=== PATIENT | female | born 1955 | race Caucasian/White ===

== ENCOUNTER → 2018-01-13 | Outpatient (CLI) | payer BC, OTHER ==
[2018-01-13 11:23] LABS: HEMOGLOBIN 15.3 g/dl (12.0-15.5); MEAN CORPUSCULAR HEMOGLOBIN 29.5 pg (27.0-33.0); MEAN CORPUSCULAR HGB CONC 33.3 g/dl (32.0-36.5); MEAN CORPUSCULAR VOLUME 88.8 fl (80.0-96.0); PLATELET COUNT, AUTOMATED 281 10^3/uL (150-450); RED BLOOD COUNT 5.18 10^6/uL (4.00-5.40); WHITE BLOOD COUNT 7.3 10^3/uL (4.0-10.0)
[2018-01-13 11:34] LABS: APPEARANCE, URINE CLEAR (CLEAR); BACTERIA, URINE AUTO NEGATIVE (NEGATIVE); BILIRUBIN, URINE AUTO NEGATIVE (NEGATIVE); BLOOD, URINE BLOOD NEGATIVE (NEGATIVE); COLOR, URINE STRAW (YELLOW); GLUCOSE, URINE (UA) AUTO NEGATIVE (NEGATIVE); INR 1.33; KETONE, URINE AUTO NEGATIVE (NEGATIVE); LEUKOCYTE ESTERASE, URINE AUTO NEGATIVE (NEGATIVE); NITRITE, URINE AUTO NEGATIVE (NEGATIVE); PROTEIN, URINE AUTO NEGATIVE (NEGATIVE); PROTHROMBIN TIME 16.8 SECONDS (12.4-14.5); RBC, URINE AUTO 0 /HPF (0-3); SPECIFIC GRAVITY URINE AUTO 1.008 (1.002-1.035); SQUAMOUS EPITHELIAL CELL UR AU 0 /HPF (0-6); UROBILINOGEN, URINE AUTO 0.2 mg/dL (0.0-2.0); WBC, URINE AUTO 0 /HPF (0-3)
[2018-01-13 12:13] LABS: ERYTHROCYTE SEDIMENTATION RATE 9 mm/hr (0-30)
[2018-01-13 12:31] LABS: ALBUMIN 3.7 GM/DL (3.2-5.2); ALKALINE PHOSPHATASE 67 U/L (45-117); ALT/SGPT 21 U/L (12-78); ANION GAP 5 MEQ/L (8-16); AST/SGOT 19 U/L (7-37); BILIRUBIN,TOTAL 0.8 MG/DL (0.2-1.0); BLOOD UREA NITROGEN 16 MG/DL (7-18); CARBON DIOXIDE LEVEL 31 MEQ/L (21-32); CHLORIDE LEVEL 105 MEQ/L (98-107); CREATININE FOR GFR 0.79 MG/DL (0.55-1.30); GLOMERULAR FILTRATION RATE > 60.0 (>45); GLUCOSE, FASTING 84 MG/DL (70-100); POTASSIUM SERUM 3.5 MEQ/L (3.5-5.1); SODIUM LEVEL 141 MEQ/L (136-145); TOTAL PROTEIN 7.4 GM/DL (6.4-8.2)
== END ==
LOC: M ADMPAT 10:14
DX: M17.11 Unilateral primary osteoarthritis, right knee (principal)
CPT/HCPCS: 71046

== ENCOUNTER 2018-01-28 10:49 | Inpatient (IN) | payer BC, OTHER ==
[2018-01-28] MEDS ORDERED: ACETAMINOPHEN 500 MG TAB PO (11:15)
[2018-01-28] MEDS: LR 1,000 ML IV ×3 (11:33→18:16)
[2018-01-28] MEDS: ACETAMINOPHEN 500 MG TAB PO (11:33)
[2018-01-28] MEDS ORDERED: fentaNYL 100 MCG/2 ML INJECTION (J3010) As Ordered ×2 (12:16→13:28)
[2018-01-28] MEDS ORDERED: MIDAZOLAM INJ 2 MG/2 ML VIAL (J2250) As Ordered ×2 (12:16→13:29)
[2018-01-28] MEDS: fentaNYL 100 MCG/2 ML INJECTION (J3010) IV ×6 (12:43→16:09)
[2018-01-28] MEDS: MIDAZOLAM INJ 2 MG/2 ML VIAL (J2250) IV (12:44)
[2018-01-28] MEDS: ceFAZolin SOD 1 GM in D5W MINI-BAG PLUS 50 ML IV ×2 (13:27→21:07)
[2018-01-28] MEDS ORDERED: EPINEPHrine INJ 1 MG/ML 1ML AMP (13:45)
[2018-01-28] MEDS ORDERED: ROPIvacaine 0.5% 30 ML INJECTION (J2795 PER 1MG) (13:45)
[2018-01-28] MEDS ORDERED: dexameTHASONE 10 MG/1 ML VIAL PRES.FREE (J1100) (13:45)
[2018-01-28] MEDS ORDERED: PROPOFOL 500 MG/50 ML VIAL As Ordered (14:02)
[2018-01-28] MEDS: ceFAZolin 1GM INJ (J0690 PER 500MG) As Ordered (14:24)
[2018-01-28] MEDS: TRANEXAMIC ACID 100 MG/ML 10ML VIAL As Ordered (14:24)
[2018-01-28] MEDS: EPINEPHrine INJ 1 MG/ML 1ML AMP As Ordered (14:25)
[2018-01-28] MEDS ORDERED: PHENYLephrine HCL 500 MCG/5 ML (100MCG/ML) SYRINGE (J2370) As Ordered (14:33)
[2018-01-28] MEDS ORDERED: GLYCOPYRROLATE INJ 0.2 MG/ML 2 ML VIAL As Ordered (14:35)
[2018-01-28] MEDS: BUPIVACAINE HCL 0.25% 10 ML VIAL As Ordered (14:52)
[2018-01-28] MEDS: BUPIVACAINE LIPOSOME/PF 1.3% 20 ML VIAL (13.3MG/ML)(EXPAREL) As Ordered (14:52)
[2018-01-28] MEDS ORDERED: MORPHINE 1MG/ML IN 0.9% NACL 100ML IV BAG As Ordered (15:05)
[2018-01-28] MEDS: ONDANSETRON 4MG/2ML VIAL (J2405) IV (15:50)
[2018-01-28] MEDS ORDERED: diphenhydrAMINE INJ 50MG/ML VIAL (J1200) IV (16:00)
[2018-01-28] MEDS ORDERED: NALOXONE INJ 0.4 MG/1 ML VIAL (J2310) IV (16:00)
[2018-01-28] MEDS ORDERED: MORPHINE 1MG/ML IN 0.9% NACL 100ML IV BAG IV (16:00)
[2018-01-28] MEDS ORDERED: FLEET ENEMA PR (16:00)
[2018-01-28] MEDS ORDERED: EPIDURAL/PCA KEYS XX (16:00)
[2018-01-28] MEDS ORDERED: MORPHINE 10 MG/ML 1ML VIAL (J2270) IV (16:00)
[2018-01-28] MEDS ORDERED: NALBUPHINE HCL 10 MG/ML AMP (J2300) IV (16:00)
[2018-01-28] MEDS ORDERED: METOCLOPRAMIDE INJ 10MG/2ML VIAL (J2765) IV (16:00)
[2018-01-28] MEDS ORDERED: ONDANSETRON 4MG/2ML VIAL (J2405) IV (16:00)
[2018-01-28] MEDS: PERCOCET 5MG/325MG TAB PO ×2 (16:08→16:34)
[2018-01-28] MEDS: OMEPRAZOLE 20 MG CAP PO (18:16)
[2018-01-28] MEDS: SENOKOT S TAB PO (20:08)
[2018-01-29] MEDS: ceFAZolin SOD 1 GM in D5W MINI-BAG PLUS 50 ML IV ×2 (02:59→10:22)
[2018-01-29] MEDS: LR 1,000 ML IV (04:30)
[2018-01-29 06:09] LABS: HEMATOCRIT 41.2 % (36.0-47.0); HEMOGLOBIN 13.7 g/dl (12.0-15.5); MEAN CORPUSCULAR HEMOGLOBIN 30.3 pg (27.0-33.0); MEAN CORPUSCULAR HGB CONC 33.3 g/dl (32.0-36.5); MEAN CORPUSCULAR VOLUME 91.2 fl (80.0-96.0); PLATELET COUNT, AUTOMATED 228 10^3/uL (150-450); RED BLOOD COUNT 4.52 10^6/uL (4.00-5.40); RED CELL DISTRIBUTION WIDTH 14.2 % (11.5-14.5); WHITE BLOOD COUNT 9.2 10^3/uL (4.0-10.0)
[2018-01-29 06:20] LABS: INR 1.09; PROTHROMBIN TIME 14.3 SECONDS (12.4-14.5)
[2018-01-29 06:29] LABS: ANION GAP 5 MEQ/L (8-16); BLOOD UREA NITROGEN 18 MG/DL (7-18); CALCIUM LEVEL 8.8 MG/DL (8.8-10.2); CARBON DIOXIDE LEVEL 29 MEQ/L (21-32); CHLORIDE LEVEL 107 MEQ/L (98-107); CREATININE FOR GFR 0.84 MG/DL (0.55-1.30); GLOMERULAR FILTRATION RATE > 60.0 (>45); GLUCOSE, FASTING 122 MG/DL (70-100); MAGNESIUM LEVEL 2.3 MG/DL (1.8-2.4); POTASSIUM SERUM 4.6 MEQ/L (3.5-5.1); SODIUM LEVEL 141 MEQ/L (136-145)
[2018-01-29] MEDS ORDERED: ONDANSETRON 4 MG TAB (S0181) PO (06:45)
[2018-01-29] MEDS ORDERED: DABIGATRAN ETEXILATE 75 MG CAP (PRADAXA) PO (09:00)
[2018-01-29] MEDS: SENOKOT S TAB PO ×2 (09:10→20:08)
[2018-01-29] MEDS: MIRALAX *UNIT DOSE* 17GM PACKET PO (09:11)
[2018-01-29] MEDS: LISINOPRIL 10 MG TAB PO (09:11)
[2018-01-29] MEDS: OMEPRAZOLE 20 MG CAP PO (09:11)
[2018-01-29] MEDS: MOM 30ML SUSPENSION UDC PO (09:11)
[2018-01-29] MEDS: PERCOCET 5MG/325MG TAB PO ×2 (09:12→13:31)
[2018-01-29] MEDS: WARFARIN SOD 5 MG TAB PO (17:49)
[2018-01-29] MEDS: ACETAMINOPHEN TAB 650MG DOSE (2X325MG) PO (20:08)
[2018-01-30] MEDS: PERCOCET 5MG/325MG TAB PO ×2 (04:13→09:06)
[2018-01-30 06:13] LABS: HEMATOCRIT 41.4 % (36.0-47.0); HEMOGLOBIN 13.6 g/dl (12.0-15.5); MEAN CORPUSCULAR HEMOGLOBIN 29.9 pg (27.0-33.0); MEAN CORPUSCULAR HGB CONC 32.9 g/dl (32.0-36.5); PLATELET COUNT, AUTOMATED 201 10^3/uL (150-450); RED BLOOD COUNT 4.55 10^6/uL (4.00-5.40); RED CELL DISTRIBUTION WIDTH 14.4 % (11.5-14.5); WHITE BLOOD COUNT 9.5 10^3/uL (4.0-10.0)
[2018-01-30 06:24] LABS: INR 1.19; PROTHROMBIN TIME 15.4 SECONDS (12.4-14.5)
[2018-01-30 06:40] LABS: ANION GAP 7 MEQ/L (8-16); BLOOD UREA NITROGEN 22 MG/DL (7-18); CALCIUM LEVEL 8.4 MG/DL (8.8-10.2); CARBON DIOXIDE LEVEL 29 MEQ/L (21-32); CHLORIDE LEVEL 103 MEQ/L (98-107); CREATININE FOR GFR 0.74 MG/DL (0.55-1.30); GLOMERULAR FILTRATION RATE > 60.0 (>45); GLUCOSE, FASTING 99 MG/DL (70-100); MAGNESIUM LEVEL 2.4 MG/DL (1.8-2.4); POTASSIUM SERUM 3.6 MEQ/L (3.5-5.1); SODIUM LEVEL 139 MEQ/L (136-145)
[2018-01-30] MEDS: LIDOCAINE 1% MDV 20ML VIAL SC (08:27)
[2018-01-30] MEDS: MOM 30ML SUSPENSION UDC PO (08:42)
[2018-01-30] MEDS: SENOKOT S TAB PO (08:42)
[2018-01-30] MEDS: OMEPRAZOLE 20 MG CAP PO (08:42)
[2018-01-30] MEDS: MIRALAX *UNIT DOSE* 17GM PACKET PO (08:44)
[2018-01-30] MEDS: LISINOPRIL 10 MG TAB PO (08:44)
[2018-01-30] MEDS: ENOXAPARIN 40 MG/0.4 ML SYRINGE (J1650) SC (08:44)
== END 2018-01-30 11:00 | disposition home or self-care (01) | DRG 302 ==
LOC: M OR 10:49 → M MS5PR 16:48
PROC: 0SRC0J9 Replacement of Right Knee Joint with Synthetic Substitute, Cemented, Open Approach (ICD-10-PCS; principal; 2018-01-28 13:27)
DX: M17.11 Unilateral primary osteoarthritis, right knee (principal); I49.5 Sick sinus syndrome; Z68.41 Body mass index [BMI] 40.0-44.9, adult; E66.01 Morbid (severe) obesity due to excess calories; I08.1 Rheumatic disorders of both mitral and tricuspid valves; Z88.8 Allergy status to other drugs, medicaments and biological substances; Z79.899 Other long term (current) drug therapy; I48.91 Unspecified atrial fibrillation; K21.9 Gastro-esophageal reflux disease without esophagitis; I10 Essential (primary) hypertension; Z85.44 Personal history of malignant neoplasm of other female genital organs; I83.91 Asymptomatic varicose veins of right lower extremity

== ENCOUNTER → 2018-02-01 | Outpatient (REF) | payer OTHER ==
[2018-02-01 13:53] LABS: INR 1.58; PROTHROMBIN TIME 19.3 SECONDS (12.4-14.5)
== END ==
LOC: M LABDRAW1 12:12
DX: Z79.01 Long term (current) use of anticoagulants (principal)

== ENCOUNTER → 2019-02-17 | Outpatient (CLI) | payer BC, OTHER ==
[~2019-02-17] MED LIST: CALC1TAB21 PO; COUM2.5T17 PO; LISI10TA2 PO; LISI10TA4 PO; OMEG1CAP16 PO; OMEP20CA3 PO; OSTETAB2 PO; PERC5TAB12 PO; PRAD150C6 PO
--- NOTE | 2019-02-17 17:29 | REP ---
BILATERAL LOWER EXTREMITY DUPLEX DOPPLER VENOUS ULTRASOUND WITH EVALUATION FOR VENOUS REFLUX: Real-time compression and duplex Doppler interrogation of the bilateral lower extremity deep vein systems is performed. Bilaterally, common femoral, superficial femoral and popliteal veins are fully compressible with transducer pressure and demonstrate normal spontaneous and phasic flow without evidence of deep vein thrombosis. Evaluation for venous reflux on the right demonstrates minimal reflux in the common femoral vein. There is reflux in the superficial femoral and popliteal veins. There is an anterior accessory greater saphenous vein present with severe reflux. There is reflux in the greater saphenous vein at the saphenofemoral junction with a duration of 0.7 seconds, AP diameter 6 mm, also at the level of the midthigh with a duration of 5.5 seconds, AP diameter 3 mm. There is no reflux in the greater saphenous vein at the knee, which measures 2 mm nor in the lesser saphenous vein which measures 3 mm. Majority of varices communicating with the anterior accessory greater saphenous vein. Large collateral vein communicates with the proximal to mid greater saphenous vein with significant reflux. Evaluation for venous reflux on the left demonstrates reflux in the common femoral and superficial femoral veins with no reflux in the popliteal vein. There is severe reflux in an anterior accessory greater saphenous vein which measures 8 mm, and supplies the majority of collateral veins in the thigh and proximal calf. The reflux in the greater saphenous vein at the saphenofemoral junction, only a trace amount, AP diameter 8 mm. There is reflux in the greater saphenous vein at the midthigh for a duration of 1.5 seconds, AP diameter is 6 mm. There is no reflux in the greater saphenous vein at the knee which measures 5 mm, nor in the lesser saphenous vein which measures 5 mm. Electronically Signed by Shamar Hopkins MD 02/22/2019 09:52 A
== END ==
LOC: M RAD 12:51
PROVIDERS: ATTEND Surgery Vascular Surgery
DX: I83.813 Varicose veins of bilateral lower extremities with pain (principal)

== ENCOUNTER → 2019-09-15 | Outpatient (REF) | payer OTHER ==
[~2019-09-15] MED LIST changes: +LISI10TA15 PO; -LISI10TA2 PO; +OMEP-172 PO; -OMEP20CA3 PO
== END ==
LOC: M LAB LCGH 13:09
PROVIDERS: ATTEND Nurse Practitioner Family
DX: Z87.898 Personal history of other specified conditions (principal)
CPT/HCPCS: 87624; G0123

== ENCOUNTER → 2023-03-11 | Outpatient (CLI) | payer MEDICARE, OTHER, BC ==
[~2023-03-11] MED LIST changes: -LISI10TA15 PO; +LISI10TA22 PO; +LISI10TA24 PO; -LISI10TA4 PO; -OMEP-172 PO; +OMEP1CAP73 PO
[2023-03-20 17:07] LABS: CALPROTECTIN STOOL 29 ug/g (0-120); PANCREATIC ELASTASE STOOL 270 (>200)
== END ==
LOC: M LAB 11:54
PROVIDERS: ATTEND Internal Medicine Gastroenterology
DX: R19.4 Change in bowel habit (principal)